=== PATIENT | female | born 1985 | race Hispanic/Latino ===

== ENCOUNTER 2025-01-20 05:57 | Inpatient (IN) | payer BC ==
[2025-01-17 14:05] LABS: Absolute Eosinophils 0.1 K/uL (0-0.5); Absolute Lymphocytes (CBC) 2.7 K/uL (0.7-4.9); Absolute Monocytes 0.7 K/uL (0.1-1.3); Absolute Neutrophil 2.4 K/uL (1.8-8.0); Basophils % 0.7 % (0-1.3); Eosinophils % 2.1 % (0-4.4); Hematocrit 30.1 % (36.0-45.0); Hemoglobin 9.7 g/dL (12.0-15.0); Lymphocytes % 44.9 % (15.3-44.8); MCH 24.8 pg (27.0-35.0); MCHC 32.2 g/dL (32.0-36.0); MCV 76.9 fL (80-100); MPV 6.6 fL (7.6-11.3); Monocytes % 11.4 % (3.3-12.3); Neutrophils % 40.9 % (41.7-73.7); Platelets 391 thou/uL (152-406); RBC Red Blood Cell Count 3.91 M/uL (3.86-4.86); Red Cell Distribution Width 16.7 % (12.1-15.2)
[2025-01-17 14:16] LABS: Specific Gravity 1.013 (1.005-1.030); Sqamous Epithelial <5 /HPF (None Seen); Urine Bacteria None Seen /HPF (<20); Urine Bilirubin NEGATIVE (Negative); Urine Blood Negative (Negative); Urine Clarity Turbid (Clear); Urine Color Colorless (Yellow); Urine Culture Reflex Order NOT NEEDED; Urine Glucose NEGATIVE (Negative); Urine Ketones NEGATIVE (Negative); Urine Microscopic Reflex YN ORDER UMIC; Urine Mucus Slight /HPF (None Seen); Urine Nitrite NEGATIVE (Negative); Urine Protein NEGATIVE (Negative); Urine RBC <5 /HPF (None Seen); Urine Urobilinogen Normal (Normal); Urine WBC <5 /HPF (<5)
[2025-01-20] MEDS: Ringers Lactate 1,000 ML IV ONE ×4 (06:25→11:51)
[2025-01-20] MEDS ORDERED: dexAMETHasone 10 MG/ML VIAL ONE (06:40)
[2025-01-20] MEDS ORDERED: KETAMINE HCL IN 0.9 % NACL 50 MG/5 ML SYRINGE IV ONE (06:40)
[2025-01-20] MEDS ORDERED: ONDANSETRON 4 MG/2 ML VIAL ONE (06:40)
[2025-01-20] MEDS ORDERED: MIDAZOLAM HCL 2 MG/2 ML INJ ONE (06:40)
[2025-01-20] MEDS ORDERED: LIDOCAINE 1% MPF 5 ML VIAL ONE (06:40)
[2025-01-20] MEDS ORDERED: ROCURONIUM 50 MG/5 ML VIAL IV ONE (06:40)
[2025-01-20] MEDS ORDERED: FENTANYL CITR 250 MCG/5 ML ONE (06:40)
[2025-01-20] MEDS ORDERED: propofoL 200 MG/20 ML VIAL IV ONE (06:40)
[2025-01-20] MEDS: SCOPOLAMINE HYDROBROMIDE PATCH TD ONE ×2 (06:42→06:45)
[2025-01-20] MEDS: MORPHINE SULFATE/PF 1 MG/ML (10 ML AMP) ONE (07:09)
[2025-01-20] MEDS ORDERED: Phenylephrine HCl 10 MG/ML 1 ML VIAL ONE (07:28)
[2025-01-20] MEDS: CEFAZOLIN SODIUM 2 GM/VIAL ONE (07:40)
[2025-01-20] MEDS: BUPIVACAINE 0.25% PF 30 ML VIAL ONE (07:52)
[2025-01-20] MEDS ORDERED: KETOROLAC 30 MG/ML INJ ONE (09:28)
[2025-01-20] MEDS ORDERED: Mastisol Adhesive Liq ONE (10:03)
[2025-01-20 10:11] LABS: Urine Specific Gravity/Preg >1.030 (1.005-1.030)
[2025-01-20] MEDS: MIDAZOLAM HCL 2 MG/2 ML INJ ONE (10:41)
[2025-01-20] MEDS ORDERED: ONDANSETRON 4 MG/2 ML VIAL IV PRN (10:42)
[2025-01-20] MEDS ORDERED: PROMETHAZINE INJ 25 MG/ML AMP IV PRN (10:42)
--- NOTE | 2025-01-20 10:47 | P.BOP ---
Preoperative diagnosis: menorrhagia, YASIR, fibroids Postoperative diagnosis: same Primary procedure: [facility] BS bilateral ovariopexy Coating Engineer: Sherri Rascon Estimated blood loss: 100 Specimen: uterus and bilateral tubes Findings: 2080 g uterus Anesthesia: spinal dur Complications: None Drain(s): Urinary catheter Fluids & blood products: 2000, UO 100 Transferred to: Recovery Room Condition: Good
[2025-01-20] MEDS: Ringers Lactate 1,000 ML IV SCH (11:00)
[2025-01-20] MEDS: HYDROMORPHONE HCL 1 MG/ML INJ ONE (11:18)
[2025-01-20 13:36] VITALS: BMI 26.3
[2025-01-20] MEDS: HEPARIN 5000 UNIT/ML 1 ML VIAL SQ SCH (16:24)
[2025-01-20] MEDS: HYDROCODONE/APAP 5/325 MG TAB PO PRN (16:30)
[2025-01-20] MEDS: MORPHINE 2 MG/ML SYR IV PRN (20:30)
--- NOTE | 2025-01-21 01:15 | OP ---
Date of Procedure: 01/20/2025 Surgeon: Melissa Edwards MD Wheel And Axle Inspector: Sherri Segundo. Preoperative Diagnoses: 1. Menorrhagia. 2. Iron deficiency anemia. 3. Fibroids. Postoperative Diagnoses: 1. Menorrhagia. 2. Iron deficiency anemia. 3. Fibroids. Procedures Performed: Total abdominal hysterectomy, bilateral salpingectomy, bilateral ovariopexy. Anesthesia: General endotracheal and spinal Duramorph given. Estimated Blood Loss: 100. Specimen: Uterus, bilateral tubes. Complications: None. Drains: Edward catheter. Fluids: 2000. Urine Output: 100. Disposition: Transferred to the recovery room in stable condition. Findings: The weight of the uterus was 2080 g. Ovaries were intact and they were secured to the bas e of the round ligament in order to prevent torsion as there was significant elongation of the IP fro m the enlargement of the ureters. Indications: The patient is a 39-year-old female, who presented with bleeding, iron-deficiency anemi a, and found to have leiomyomata. She was investigated with an ultrasound endometrial sampling which was negative for any leiomyosarcoma, atypia, or endometrial cancer. She was then counseled on the b enefits and risks of medical and surgical treatment options. The uterine artery embolization, myomec maty, and hysterectomy were primarily discussed. She understood all the differences between the proc edures, recovery, complications, and proceeded to consent for a hysterectomy. She had received an iron infusion, which improved her hemoglobin to 9 g. Her preoperative hemoglobin was 9.1, did not need any a transfusion. She was then consented and in the preoperative area her family was present by the side and her consen t was re-verified, questions and answers were done to all of their satisfaction. The patient was chris en back to the OR. We discussed about pain control postoperatively and a spinal Duramorph injection was more conservativ e and appropriate to avoid narcotic use. This patient has history of bowel issues. Once this was done, she was placed in a supine fashion. General anesthesia was given. She was place d in a dorsal lithotomy position. Positioning was checked. The patient was grounded. Time-out was done. SCDs were started. Abdomen prepped with ChloraPrep; vulva, vagina, and perineum with Betadine and draped in a sterile fa shion. Edward was placed to drain the bladder and attached to a drainage bag. This area was covered. A midline infraumbilical incision was made from the suprapubic region to the infraumbilical area with a 10 blade after injecting 0.25% bupivacaine. Dissection was performed with the Bovie to the fascia . Fascia was opened with the Bovie as well and then once the peritoneum was entered, the peritoneal cavity was checked. No adhesions were noted after the entire fascial opening was made to encompass t he skin incision. Then proceeded to externalize the uterine specimen. Once this was done, the upper portion was packed with 3 moist laps. The patient was placed in Trendelenburg position. A self-ret aining Burson retractor was used. Once all the positioning was appropriate and exposure adequate, t hen procedure was started. A kfgpzn-ku-rwigu 0 Vicryl suture was placed at the fundus for traction and held on hemostats. A buck d-held curved tip 10 mm LigaSure was used to do a significant portion of the lateral dissection. Both ovaries were identified. Tubes and round ligament pedicles were made on either side of the uter o-ovarian ligament and on the round ligament. The tube was dissected with [place] holding and retrac ting on the fimbriated end all the way towards the cornual end. Then, utero-ovarian ligament taken d own and round ligament severed. Mesosalpinx was taken down with the LigaSure as well. Peritoneum an d the anterior broad ligament was opened up all the way down to the bladder. There was scar tissue o f the bladder to the hysterotomy side from her section. Once the anterior lower portion of the uterus was exposed and the bladder was exposed by doing the peritoneal dissection, paravaginal sp ok on the left side was opened up, then the posterior peritoneum taken down all the way to the left uterosacral ligament, skeletonizing the vessels. The broad ligament was taken down with the LigaSure . Then, attention was directed to the opposite side to perform a similar dissection opening up the r ound ligament, creating a pedicle, taking those down and then dissecting the ureter laterally from th e medial leaf of the broad ligament. The broad ligament was dissected towards the mesosalpinx. The tube on the right side was taken down from the fimbriated end to the coronal end, left attached to th e specimen. Utero-ovarian ligament was taken down and then the anterior broad ligament opened on the right side connecting to the bladder flap and posteriorly taken down to the uterosacral dissecting a nd retracting the utero-ovarian. Rest of the broad ligament here was taken down with the LigaSure an d then there was an adhesion of the bladder. It was also taken down with sharp dissection and hemost asis with the Bovie. The vessels on both sides were well identified. The right paravaginal space wa s also opened up, then the bladder scar was dense and adherent and I had to take this down with sharp dissection also with the Bovie as needed for hemostasis. Once this was cut and dissected inferiorly , there was no evidence of any bladder injury. The bladder was dissected on the anterior vaginal wal l below the level of the cervix and then once both vessels were identified, Casandra clamps were placed at the level of the internal os to take down the uterine artery and vein on both sides. Stitches we re placed to secure the vessels. To avoid backflow, Farshad clamps were placed on the lateral aspects of the uterus. Farshad clamps were then taken 3 bites on each side to reach the level of the external os, so I could make the colpotomy. Two Johny clamps were placed on each side joining in the middle on the vaginal a pex. Then, the Kurt scissors were used to take down the specimen, initially the uterus and uppe r portion of the cervix, so there is better exposure for my lower dissection and then the cervix was completely cut and removed with the scissors. Two angle sutures were secured with a Casandra stitch on both sides and then 3 [id number]-[id number]-usdcs in the middle with all 0 Vicryl sutures with excellent hemost asis. On the right cardinal ligament, there was some bleeding and I used a 3-0 continuous running Vi cryl suture for hemostasis. The uterosacral ligament was still attached to the posterior portion of the vaginal cuff. There was good support. Once all the specimens were removed, all the pedicles wer e checked. There was significant laxity of both the ovaries and therefore decision was made to perfo rm ovariopexy. Bilateral ovariopexy: 3-0 Vicryl was taken from the base of the right round ligament to the utero-ov zac ligament side of the ovary. Xaynrh-qw-jzgio suture was placed without leaving a large defect i n the peritoneum between the IP and the round to prevent internal hernia. The suture was placed by r unning it down. A similar suture was placed on the opposite side as well to secure the left ovary. There was excellent hemostasis on both sides. All the packs were removed. The pelvis was irrigated and suctioned with warm saline. Then, the peritoneum was closed with a continuous running 0 Vicryl. Fascia closed with a continuous running 0 PDS suture, 1 from the top, and the other from the bottom and they were tied together. Interrupted 3-0 Vicryl sutures in the subcutaneous tissues and 4-0 Vicr yl to close the of the skin with subcuticular sutures. Edward was left in place. The patient was sarita aned up, recovered from anesthesia, bandage placed in a sterile fashion, and she was taken to the PAC U in stable condition. All instrument, needle, and sponge counts x3 were correct at the end of the c ase. The patient tolerated the procedure well. EBL 100. The patient's family was debriefed fairly on her procedure. The patient had requested pictures; flores jody, these were not taken and this was discussed with the patient clearly preoperatively that without the use of the laparoscope, there was no secure way for me to take pictures. She will follow up in 1 week postop and then in 6 weeks postop. She has been given instructions karime contreras and medications ordered preoperatively. She will be on the floor on postop day 1. Plan is to re move her Edward catheter. Oral medications and regular diet were all started. Anticipated discharge postop day 2 or 3, conditional on the patient's ambulation and tolerating diet without any significant postoperative complications. AUGUSTIN/RADHA Voice ID: [id number] Report ID: [id number]
[2025-01-21] MEDS: IBUPROFEN 600 MG TAB PO PRN (04:33)
[2025-01-21 05:33] LABS: Absolute Lymphocytes (CBC) 2.8 K/uL (0.7-4.9); Absolute Monocytes 0.9 K/uL (0.1-1.3); Absolute Neutrophil 7.1 K/uL (1.8-8.0); Basophils % 0.3 % (0-1.3); Eosinophils % 0.3 % (0-4.4); Hematocrit 25.1 % (36.0-45.0); Hemoglobin 8.2 g/dL (12.0-15.0); Lymphocytes % 25.7 % (15.3-44.8); MCH 25.1 pg (27.0-35.0); MCHC 32.7 g/dL (32.0-36.0); MCV 76.8 fL (80-100); MPV 6.5 fL (7.6-11.3); Monocytes % 8.6 % (3.3-12.3); Neutrophils % 65.1 % (41.7-73.7); Nucleated Red Blood Cells % 0.1 % (0-0); Platelets 363 thou/uL (152-406); RBC Red Blood Cell Count 3.28 M/uL (3.86-4.86); Red Cell Distribution Width 16.5 % (12.1-15.2)
[2025-01-21 05:49] LABS: Anion Gap 8.7 mEq/L (5.0-15.0); Potassium 3.7 mEq/L (3.5-5.1)
--- NOTE | 2025-01-21 08:51 | P.PN ---
Subjective Date of Service: 01/21/25 Chief Complaint: Post op day 1 from [facility]/ Subjective: No new changes, Tolerating diet, Ambulating, Doing well (Pt resting in bed this morning. Was able to void this morning. Passing flatulence last night. Pain currently well controlled with norco and morphine.) <Juan CarlosYesica - Last Filed: 01/21/25 08:44> Date of Service: 01/27/25 <Melissa Edwards - Last Filed: 01/27/25 07:27> Review of Systems General: Unremarkable Eyes: Unremarkable ENT: Unremarkable Respiratory: Unremarkable Cardiovascular: Unremarkable Genitourinary: Other (pelvic pain), Unremarkable Musculoskeletal: Unremarkable Integumentary: Unremarkable Neurological: Unremarkable Lymphatics: Unremarkable <Juan CarlosYesica - Last Filed: 01/21/25 08:44> Physical Examination - Vital Signs Temperature: 97.5 F Blood Pressure: 103/58 Pulse: 85 Respirations: 16 Pulse Ox (%): 94 - Physical Exam General: Alert, In no apparent distress, Oriented x3 HEENT: Atraumatic, Normocephalic Neck: Supple Cardiovascular: No edema Gastrointestinal: Other (abdominal binder in place) Musculoskeletal: No swelling Integumentary: No rashes Neurological: Normal speech - Studies Laboratory Data (last 24 hrs) 01/21/25 01/21/25 05:01 05:01 WBC 10.90 Hgb 8.2 L Hct 25.1 L Plt Count 363 Sodium 139 Potassium 3.7 BUN 7 Creatinine 0.59 Glucose 112 H <Yesica Rangel - Last Filed: 01/21/25 08:44> Assessment And Plan - Plan 1. Fibroid uterus: Post op day 1 from [facility]//bilateral ovariopexy. Tolerating diet, passing flatulence overnight, no BM yet. Passed voiding trial this morning, recommend pt continue to ambulate as able and void every 2 hours. 2. Pelvic/post-op pain: Currently well controlled. Continue [place]/morphine/ibuprofen alternating prn. She has rx for norco at home to use upon discharge. 3. Iron deficiency anemia: Mild decline today in Hgb to 8.2 which is expected post operatively. Monitor. Restart iron supplement after discharge. Plan to discharge in: 24 Hours (likely 24 hours pending pain control and tolerating diet) - Code Status/Comfort Care Code Status: Full Code <Yesica Rangel - Last Filed: 01/21/25 08:44>
[2025-01-21] MEDS: DOCUSATE NA 100 MG CAP PO SCH (13:01)
[2025-01-22 08:23] VITALS: BP 126/62; TEMP 98.2
[2025-01-22 08:50] VITALS: O2SAT 97
--- NOTE | 2025-01-24 16:18 | P.PN ---
Subjective Date of Service: 01/24/25 Chief Complaint: Post op day 2 from [facility]/ Subjective: No new changes, Tolerating diet, Ambulating, Improving, Doing well Review of Systems General: Unremarkable Eyes: Unremarkable ENT: Unremarkable Respiratory: Unremarkable Cardiovascular: Unremarkable Physical Examination - Vital Signs Temperature: 98.2 F Blood Pressure: 126/62 Pulse: 96 Respirations: 18 Pulse Ox (%): 97 - Physical Exam General: Alert, Oriented x3 Assessment And Plan - Plan 1. Fibroid uterus: Post op day 2 from [facility]/bilateral ovariopexy. Tolerating diet, passing flatulence overnight. Had BM . Recommend pt continue to ambulate as able and void every 2 hours. 2. Pelvic/post-op pain: Currently well controlled. Continue [place]/ibuprofen alternating prn. She has rx for norco at home to use upon discharge. 3. Iron deficiency anemia: Mild decline today in Hgb to 8.2 which is expected post operatively. Monitor. Restart iron supplement after discharge. Discharge Plan: Home Plan to discharge in: 24 Hours (Discharge home now. Follow up in office next .)
== END 2025-01-22 12:00 | disposition home health service (06) | DRG 743 ==
LOC: PRE 05:57 → 2ND 10:42
PROVIDERS: ADMIT Physician Assistant; ATTEND Obstetrics & Gynecology
PROC: 0UT70ZZ Resection of Bilateral Fallopian Tubes, Open Approach (ICD-10-PCS; 2025-01-20)
PROC: 0UQ20ZZ Repair Bilateral Ovaries, Open Approach (ICD-10-PCS; 2025-01-20)
PROC: 0UT90ZZ Resection of Uterus, Open Approach (ICD-10-PCS; principal; 2025-01-20 07:00)
DX: D25.9 Leiomyoma of uterus, unspecified (principal); N92.1 Excessive and frequent menstruation with irregular cycle; D50.9 Iron deficiency anemia, unspecified; G89.18 Other acute postprocedural pain; R10.2 Pelvic and perineal pain
CPT/HCPCS: 36415; 80048; 81001; 81025; 85025; 86850; 86900; 86901; 88307; 94010; 94760; J1100; J1171; J1644; J2003; J2250; J2270; J2371; J2405; J2704; J3010; J7120